=== PATIENT | male | born 1985 | race Two or more races ===

== ENCOUNTER 2016-08-31 12:32 | Emergency (ER) | payer BC ==
[~2016-08-31] VITALS: Ht 180.3 cm; Wt 91.6 kg
--- NOTE | 2016-08-31 12:42 | NUR ---
AMBULATORY TO ER BED 10. PRESENTS W/ MOUTH LACERATION APPROX 1CM. NO ACTIVE BLEEDING. PT STATES GOT ELBOWED WHILE PLAYING BASKETBALL. NO KO. PT IS AAO. AWAITING MD RENTERIA.
--- NOTE | 2016-08-31 12:45 | NUR ---
ILIA GAYLE AT BEDSIDE FOR EVAL.
--- NOTE | 2016-08-31 13:02 | NUR ---
ILIA GAYLE BACK AT BEDSIDE FOR LAC REPAIR.
[2016-08-31 13:25] VITALS: BP 132/80
--- NOTE | 2016-08-31 13:25 | NUR ---
Patient discharged to home in stable condition. Written and verbal after care instructions given. Patient verbalizes understanding of instruction.
== END 2016-08-31 13:26 | disposition home or self-care (01) ==
LOC: ER 12:34
DX: S01.511A Laceration without foreign body of lip, initial encounter (principal); X58.XXXA Exposure to other specified factors, initial encounter; Y93.67 Activity, basketball; Y92.89 Other specified places as the place of occurrence of the external cause; Y99.9 Unspecified external cause status
CPT/HCPCS: 12011; 99283; A4606; Z7610

== ENCOUNTER 2022-03-05 22:56 | Emergency (ER) | payer BC, OTHER ==
[~2022-03-05] VITALS: Ht 180.3 cm; Wt 115.7 kg
[2022-03-06 01:25] VITALS: BP 126/79
--- NOTE | 2022-03-06 01:55 | NUR ---
CALLED TO BE ROOMED, PT IS NOT IN WAITING ROOM
--- NOTE | 2022-03-06 02:00 | NUR ---
CALLED ONCE AGAIN TO BE ROOMED. PT IS NOT IN WAITING ROOM
== END 2022-03-06 02:01 | disposition left against medical advice (07) ==
LOC: ER 23:00
DX: Z53.21 Procedure and treatment not carried out due to patient leaving prior to being seen by health care provider (principal)